=== PATIENT | female | born 1975 | race Caucasian/White ===

== ENCOUNTER → 2016-10-13 | Outpatient (CLI) | payer OTHER ==
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
== END | disposition home or self-care (01) ==
LOC: RADMRIMAIN 18:38
PROVIDERS: ATTEND Family Medicine
DX: M50.221 Other cervical disc displacement at C4-C5 level (principal)
CPT/HCPCS: 72141

== ENCOUNTER → 2016-11-13 | Outpatient (CLI) | payer OTHER ==
--- NOTE | 2016-11-13 12:59 | MR ---
EXAMINATION TYPE: MR lumbar spine wo/w con DATE OF EXAM: 11/13/2016 11:38 AM COMPARISON: 10/08/2012 HISTORY: back pain, hx of breast ca CONTRAST: 20 mL intravenous MultiHance. TECHNIQUE: Multiplanar, multisequence images of the lumbar spine were acquired. FINDINGS: L5-S1: Left paracentral disc bulging is present with moderate anterior thecal sac compression. This h as contact with left S1 nerve root. Some posterior displacement may be present. Correlate with left r adicular symptoms. Neural foramen are patent.. L4-L5: Some facet hypertrophy is present. Ligamentum flavum laxity is present with posterior lateral thecal sac compression. No lateral canal stenosis present. Minimal disc bulge is present with anterio r thecal sac contact. No AP spinal canal stenosis is present. Neural foramen are patent. L3-L4: No significant disc bulge or disc herniation. No spinal canal stenosis. No foraminal stenosi s. Neural foramen are patent.. L2-L3: No significant disc bulge or disc herniation. No spinal canal stenosis. No foraminal stenosi s. Neural foramen are patent.. L1-L2: No significant disc bulge or disc herniation. No spinal canal stenosis. No foraminal stenosi s. Neural foramen are patent.. T12-L1: No significant disc bulge or disc herniation. No spinal canal stenosis. No foraminal stenos is. Neural foramen are patent.. IMPRESSION: 1. Left paracentral disc bulge L5-S1 likely has left S1 nerve root contact and displacement. Correlat e with left S1 radicular symptoms. 2. Facet hypertrophy L4-5 with degenerative disc changes present at this level. 3. Examination appears similar to the comparison of 10/08/2012
== END | disposition home or self-care (01) ==
LOC: RADMRIMAIN 10:47
PROVIDERS: ATTEND Physical Medicine & Rehabilitation
DX: M51.27 Other intervertebral disc displacement, lumbosacral region (principal); M53.86 Other specified dorsopathies, lumbar region; M51.36 Other intervertebral disc degeneration, lumbar region
CPT/HCPCS: 72158; A9577

== ENCOUNTER → 2016-11-14 | Outpatient (CLI) | payer OTHER ==
--- NOTE | 2016-11-14 14:55 | XR ---
Right shoulder HISTORY: Pain The patient's arthrogram was aborted at this time and rescheduled due to patient's contrast allergy. Patient will be premedicated for contrast administration. 3 views of the right shoulder. Bone mineralization is reduced. 4 images. No fracture or dislocation. Right lung apex as visualized is normal. There is arthropathy of the acro mioclavicular joint. IMPRESSION: Aborted arthrogram. Osteopenia, acromioclavicular joint arthropathy
== END | disposition home or self-care (01) ==
LOC: RADFLMAIN 13:11
PROVIDERS: ATTEND Physical Medicine & Rehabilitation
DX: M85.811 Other specified disorders of bone density and structure, right shoulder (principal); M12.811 Other specific arthropathies, not elsewhere classified, right shoulder

== ENCOUNTER → 2016-11-28 | Outpatient (CLI) | payer OTHER ==
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
--- NOTE | 2016-11-28 15:57 | FL ---
Fluoroscopic guided arthrogram right shoulder, aborted HISTORY: Shoulder pain No comparisons Barrier technique was utilized. The skin overlying a suitable path to the inferior aspect of the fei ohumeral joint was localized with fluoroscopy and the overlying skin prepped and draped. Lidocaine ed for local anesthesia. Following attempted placement of the 22-gauge needle within the joint space, patient experienced some referred pain to the upper shoulder. Reattempt at slightly different angle with a 22-gauge needle yielded pain that was intolerable to the patient. Patient requested terminatio n of the procedure. Hemostasis was achieved. Needle removed. No immediate complication. Patient's sym ptoms subsided spontaneously. IMPRESSION: The procedure was terminated due to patient pain.
== END ==
LOC: RADFLMAIN 12:59
PROVIDERS: ATTEND Physical Medicine & Rehabilitation
DX: S46.011A Strain of muscle(s) and tendon(s) of the rotator cuff of right shoulder, initial encounter (principal); M75.41 Impingement syndrome of right shoulder

== ENCOUNTER → 2017-02-19 | Outpatient (CLI) | payer OTHER ==
--- NOTE | 2017-02-26 15:56 | MR ---
MR brain without contrast HISTORY: Headaches, postconcussion syndrome Multiplanar multisequence imaging obtained through the brain and correlated to CT brain 02/07/2016 There is no restricted diffusion. There is no hemorrhage or hydrocephalus. There are normal vascular flow voids. The orbits show symmetric appearance. Paranasal sinuses are well aerated, ethmoid air jose ls are normal as seen. Brain signal is remarkable for some scattered hyperintensities on inversion re covery and T2-weighted sequences deep white matter, approximately 5-10 lesions, the largest measures only 4 mm. Corpus callosum, pituitary, cervical medullary junction, cerebellopontine angles are ky l. Postcontrast images was performed, there was a lack of intravenous access IMPRESSION: Scattered white matter hyperintensities are indeterminate and could be seen due to migrai ne headaches, hypertension, vasculitis, multiple sclerosis felt to be less likely.
== END | disposition home or self-care (01) ==
LOC: RADMRIMAIN 11:46
PROVIDERS: ATTEND Physical Medicine & Rehabilitation
DX: R90.82 White matter disease, unspecified (principal); F07.81 Postconcussional syndrome
CPT/HCPCS: 70551

== ENCOUNTER → 2017-03-19 | Outpatient (CLI) | payer OTHER ==
--- NOTE | 2017-03-20 08:59 | MM ---
Reason for exam: additional evaluation requested from prior study. Last mammogram was performed 1 year ago. History: Patient is postmenopausal and has history of breast cancer at age 38. Family history of premenopausal breast cancer in maternal aunt at age 32. Malignant US breast localization LT, January 11, 2014. Malignant US LT VAD breast biopsy of the left breast, November 16, 2013. Chemotherapy, 2013. Radiation therapy of the left breast, 2013. Excisional biopsy of the left breast, 2006. Took hormonal contraceptives for 13 years beginning at age 23. Took tamoxifen for 8 months. Physical Findings: Nurse did not find any significant physical abnormalities on exam. MG 3D Diag Mammo W/Cad SUMMER Bilateral CC and MLO view(s) were taken. Prior study comparison: March 05, 2016, bilateral MG 3d diag mammo w/cad SUMMER. February 09, 2015, bilateral MG diagnostic mammo w CAD SUMMER. The breast tissue is heterogeneously dense. This may lower the sensitivity of mammography. No suspicious calcifications or masses are seen. Stable post lumpectomy changes in the left breast. No significant new findings when compared with previous films. These results were verbally communicated with the patient and result sheet given to the patient on 03/19/17. ASSESSMENT: Benign, BI-RAD 2 RECOMMENDATION: Follow-up diagnostic mammogram of both breasts in 1 year.
== END | disposition home or self-care (01) ==
LOC: RADMAMWWP 15:19
PROVIDERS: ATTEND Internal Medicine Hematology & Oncology
DX: R92.8 Other abnormal and inconclusive findings on diagnostic imaging of breast (principal)
CPT/HCPCS: G0204; G0279

== ENCOUNTER 2017-11-18 10:32 | Emergency (ER) | payer OTHER ==
[2017-11-18] MEDS ORDERED: ONDANSETRON ODT 4 MG TAB PO STA (10:41)
[2017-11-18] MEDS ORDERED: RX INFO: IV CONTRAST WAS GIVEN 1 EACH MISC MISCELLANE PRN (10:47)
[2017-11-18] MEDS ORDERED: methylPREDNISolone SOD SUCCI 125 MG/2 ML VIAL IV STA (10:48)
[2017-11-18] MEDS ORDERED: FAMOTIDINE 20 MG/2 ML VIAL IV STA (10:48)
[2017-11-18] MEDS ORDERED: diphenhydrAMINE 50 MG/ML 1 ML VIAL IVP STA (10:48)
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
[2017-11-18 11:30] LABS: Basophils % (A) 1 %; Eosinophils # (A) 0.1 k/uL (0-0.7); Eosinophils % (A) 2 %; HCT 42.5 % (34.0-46.0); HGB 14.8 gm/dL (11.4-16.0); Lymphocytes % (A) 35 %; MCH 29.6 pg (25.0-35.0); MCHC 34.8 g/dL (31.0-37.0); Mean Platelet Volume 6.7; Monocytes # (A) 0.4 k/uL (0-1.0); Monocytes % (A) 7 %; Neutrophils % (A) 54 %; Platelet Count 324 k/uL (150-450); RDW 12.7 % (11.5-15.5); WBC 5.6 k/uL (3.8-10.6)
[2017-11-18 11:38] LABS: ALT 36 U/L (9-52); AST 33 U/L (14-36); Albumin 4.4 g/dL (3.5-5.0); Alcohol <10 mg/dL; Alkaline Phosphatase 146 U/L (38-126); Anion Gap 12 mmol/L; Blood Urea Nitrogen 14 mg/dL (7-17); Calcium 9.8 mg/dL (8.4-10.2); Carbon Dioxide 25 mmol/L (22-30); Chloride 103 mmol/L (98-107); Glucose 87 mg/dL (74-99); Potassium 4.4 mmol/L (3.5-5.1); Sodium 140 mmol/L (137-145); Total Bilirubin 0.4 mg/dL (0.2-1.3); Total Protein 7.7 g/dL (6.3-8.2)
[2017-11-18 11:40] LABS: Partial Thromboplastin Time 23.9 sec (22.0-30.0); Prothrombin Time 9.8 sec (9.0-12.0)
[2017-11-18 11:53] LABS: Creatine Kinase 55 U/L (30-135)
[2017-11-18 12:05] LABS: Creatine Kinase MB 0.5 ng/mL (0.0-2.4); Troponin I <0.012 ng/mL (0.000-0.034)
[2017-11-18 12:27] VITALS: RESP 18
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
[2017-11-18 13:43] LABS: Amphetamine Screen,Urine Not Detected (NotDetected); Barbiturate Screen,Urine Not Detected (NotDetected); Benzodiazepines Screen,Urine Not Detected (NotDetected); Cocaine Screen,Urine Not Detected (NotDetected); Methadone Screen, Urine Not Detected (NotDetected); Opiate Screen,Urine Not Detected (NotDetected); Oxycodone Screen, Urine Detected (NotDetected); Phencyclidine Screen,Urine Not Detected (NotDetected); Tricyclic Antidepressant,Urine Not Detected (NotDetected); Urn Cannabinoid Scrn Not Detected (NotDetected)
[2017-11-18 13:49] VITALS: BP 97/66; PULSE 93; TEMP 97.9
[2017-11-18 14:27] LABS: Appearance,Urine Cloudy (Clear); Bacteria,Urine Few /hpf; Bilirubin,Urine Negative (Negative); Blood,Urine Trace (Negative); Color,Urine Colorless; Glucose,Urine (UA) Negative (Negative); Ketones,Urine Negative (Negative); Leukocyte Esterase,Urine Large (Negative); Mucus,Urine Rare /hpf; Nitrite,Urine Negative (Negative); Protein,Urine Negative (Negative); RBC,Urine 5 /hpf (0-5); Specific Gravity,Urine 1.024 (1.001-1.035); Squamous Epithelial Cell,Urine 20 /hpf (0-4); Urobilinogen,Urine <2.0 mg/dL (<2.0); WBC,Urine 80 /hpf (0-5)
== END 2017-11-18 13:49 | disposition home or self-care (01) ==
LOC: EC 10:32
DX: M79.89 Other specified soft tissue disorders (principal); M89.8X8 Other specified disorders of bone, other site; K76.89 Other specified diseases of liver; K21.9 Gastro-esophageal reflux disease without esophagitis; F32.9 Major depressive disorder, single episode, unspecified; F41.9 Anxiety disorder, unspecified; Z79.891 Long term (current) use of opiate analgesic; Z79.899 Other long term (current) drug therapy; Z91.013 Allergy to seafood; Z91.041 Radiographic dye allergy status; Z85.3 Personal history of malignant neoplasm of breast; Z98.890 Other specified postprocedural states; R11.0 Nausea; V49.50XA Passenger injured in collision with unspecified motor vehicles in traffic accident, initial encounter; Y92.410 Unspecified street and highway as the place of occurrence of the external cause
CPT/HCPCS: 36415; 93005; 86900; 86901; 80053; 82550; 82553; 84484; 85025; 85610; 85730; 86850; 81001; 80306; 80320; 73030; 72125; 70450; 71260; 74177; 99285; 96374; 96375 ×2; J1200; J2930; Q9967

== ENCOUNTER → 2017-11-28 | Outpatient (CLI) | payer OTHER ==
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
== END | disposition home or self-care (01) ==
LOC: RADPETMAIN 12:23
PROVIDERS: ATTEND Internal Medicine Hematology & Oncology
DX: C50.412 Malignant neoplasm of upper-outer quadrant of left female breast (principal)
CPT/HCPCS: 78815; A9552

== ENCOUNTER → 2018-03-22 | Outpatient (CLI) | payer OTHER ==
--- NOTE | 2018-03-22 11:43 | MM ---
Reason for exam: additional evaluation requested from prior study. Last mammogram was performed 1 year ago. History: Patient is postmenopausal and has history of breast cancer at age 38. Family history of premenopausal breast cancer in maternal aunt at age 32. Malignant US breast localization LT, January 11, 2014. Malignant US LT VAD breast biopsy of the left breast, November 16, 2013. Chemotherapy, 2013. Radiation therapy of the left breast, 2013. Excisional biopsy of the left breast, 2006. Took hormonal contraceptives for 13 years beginning at age 23. Took tamoxifen for 8 months. Physical Findings: Nurse did not find any significant physical abnormalities on exam. MG 3D Diag Mammo W/Cad SUMMER Bilateral CC and MLO view(s) were taken. Prior study comparison: March 19, 2017, bilateral MG 3d diag mammo w/cad SUMMER. March 05, 2016, bilateral MG 3d diag mammo w/cad SUMMER. The breast tissue is heterogeneously dense. This may lower the sensitivity of mammography. Post surgical and post therapy changes left breast. No significant new findings when compared with previous films. These results were verbally communicated with the patient and result sheet given to the patient on 03/22/18. ASSESSMENT: Benign, BI-RAD 2 RECOMMENDATION: Follow-up diagnostic mammogram of both breasts in 1 year.
== END | disposition home or self-care (01) ==
LOC: RADMAMWWP 10:41
PROVIDERS: ATTEND Internal Medicine Hematology & Oncology
DX: Z85.3 Personal history of malignant neoplasm of breast (principal)
CPT/HCPCS: 77066; G0279; 77062

== ENCOUNTER → 2018-03-27 | Outpatient (CLI) | payer OTHER ==
--- NOTE | 2018-03-29 07:52 | PE ---
EXAMINATION TYPE: PET CT fusion skull to thigh DATE OF EXAM: 03/27/2018 COMPARISON: 11/28/2018 PET/CT and CT chest, abdomen, and pelvis dated 11/18/2017. HISTORY: Breast cancer. Follow-up exam. Surveillance. Assess response to treatment. History of left b reast cancer with surgical resection in November 2013. Last radiation therapy in 2014 and chemotherapy i n 2013. TECHNIQUE: Following the intravenous administration of 14.73 mCi of F-18 FDG, whole body images are performed from the skull base to the midthigh. Images are reviewed on the computer in the coronal, a xial, and sagittal planes. Reconstructed rotating images are created on independent workstation and reviewed on the computer. A localization and attenuation correction CT is performed in conjunction with the PET scan. SCAN: Follow-up, second. FINDINGS: Mediastinal background: 1.66 Abdominal background: 3.11 SKULL BASE AND NECK: No suspicious radiotracer uptake. CHEST, MEDIASTINUM, AND HILAR REGION: No focal uptake in the postsurgical left lumpectomy bed or axil la. ABDOMEN AND PELVIS: No focal hepatic uptake is seen. The segment 4 hepatic lesion seen on the exam of 11/18/2017 is again suspected to represent focal fat with no hypermetabolic activity. Although few left superficial inguinal lymph nodes remain prominent sizes are unchanged from the prio r and demonstrate no hypermetabolic activity with a maximum SUV of 1.08. The previously seen focal fat stranding within the left hip is redemonstrated, again possibly sequela prior trauma and is not hypermetabolic with a maximum SUV of 1.33 (previously 2.9). OSSEOUS STRUCTURES: The sclerotic sternal lesion shows no hypermetabolic uptake with a maximum SUV of 1.02 (previous upta ke of 2.0). The previously seen uptake along the left mid clavicle is no longer appreciated and was likely degene rative. The previously seen uptake along the left anterior seventh rib without CT correlate is no longer appr eciated. The previously seen mildly hypermetabolic uptake throughout the bone marrow of the spine with a maxim um SUV of 3.8 on the prior exam is no longer appreciated as the spine has a maximum SUV of 2.69, belo w mediastinal background. OTHER CT: Visualized paranasal sinuses and mastoid air cells are well aerated. No new adenopathy in t he head or neck. Left paracentral sternal body echogenic focus is unchanged measuring 1.3 cm. No new pulmonary nodules evident. Minimal bibasilar subsegmental atelectasis is seen. No mediastinal adenopa thy is appreciated. The unenhanced abdominal viscera are grossly unremarkable other than 3 nonobstruc ting 1 to 2 mm left renal calculi are seen on the prior. Additionally there is a punctate 1 to 2 mm r ight upper port nonobstructing renal calculus. Bowel is nondilated. Cystic/follicular changes are see n in the ovaries. Similar-appearing prominent but nonenlarged superficial inguinal lymph nodes again are appreciated on the left. Mild degenerative changes of the spine and sacroiliac joints as well as the femoral acetabular joints are present. IMPRESSION: 1. No current evidence of active metastatic disease. There is no hypermetabolic activity within the c hest, abdomen, or pelvis. 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 No hypermetabolic activity is n ow appreciated within the anterior seventh left rib is seen on the prior. 2.4 no hypermetabolic activity within the liver to suggest metastatic disease. The previously seen hy poattenuated lesion in segment IVb likely represents focal fatty infiltration and is stable from the prior.
== END | disposition home or self-care (01) ==
LOC: RADPETMAIN 09:50
PROVIDERS: ATTEND Internal Medicine Hematology & Oncology
DX: C79.51 Secondary malignant neoplasm of bone (principal); C50.412 Malignant neoplasm of upper-outer quadrant of left female breast; K76.0 Fatty (change of) liver, not elsewhere classified
CPT/HCPCS: 78815; A9552

== ENCOUNTER → 2018-04-02 | Outpatient (CLI) | payer OTHER | END | disposition home or self-care (01) | LOC: RADUSWWP 12:10 | PROVIDERS: ATTEND Internal Medicine | DX: Z53.9 Procedure and treatment not carried out, unspecified reason (principal) ==

== ENCOUNTER → 2018-04-05 | Outpatient (CLI) | payer OTHER ==
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
== END | disposition home or self-care (01) ==
LOC: RADUSWWP 08:48
PROVIDERS: ATTEND Internal Medicine
DX: R22.42 Localized swelling, mass and lump, left lower limb (principal)

== ENCOUNTER → 2019-03-23 | Outpatient (CLI) | payer MEDICARE, OTHER ==
--- NOTE | 2019-03-23 12:03 | MM ---
Reason for exam: additional evaluation requested from prior study. Last mammogram was performed 1 year ago. History: Patient is postmenopausal and has history of breast cancer at age 38. Family history of premenopausal breast cancer in maternal aunt at age 32. Malignant US breast localization LT, January 11, 2014. Malignant US LT VAD breast biopsy of the left breast, November 16, 2013. Chemotherapy, 2013. Radiation therapy of the left breast, 2013. Excisional biopsy of the left breast, 2006. Took hormonal contraceptives for 13 years beginning at age 23. Took tamoxifen for 8 months. Physical Findings: Nurse did not find any significant physical abnormalities on exam. MG 3D Diag Mammo W/Cad SUMMER Bilateral CC and MLO view(s) were taken. XCCL view(s) were taken of the left breast. Prior study comparison: March 22, 2018, bilateral MG 3d diag mammo w/cad SUMMER. March 19, 2017, bilateral MG 3d diag mammo w/cad SUMMER. The breast tissue is heterogeneously dense. This may lower the sensitivity of mammography. Finding: There are stable clips, architectural distortion in the upper outer quadrant, posterior position of the left breast consistent with known excisional biopsy. This finding appears new when compared with previous films. These results were verbally communicated with the patient and result sheet given to the patient on 03/23/19. ASSESSMENT: Benign, BI-RAD 2 RECOMMENDATION: Follow-up diagnostic mammogram of both breasts in 1 year.
== END | disposition home or self-care (01) ==
LOC: RADMAMWWP 10:50
PROVIDERS: ATTEND Internal Medicine Hematology & Oncology
DX: Z08 Encounter for follow-up examination after completed treatment for malignant neoplasm (principal); Z85.3 Personal history of malignant neoplasm of breast
CPT/HCPCS: 77066; G0279; 77062

== ENCOUNTER 2019-06-11 13:24 | Emergency (ER) | payer MEDICARE, OTHER ==
[2019-06-11 13:31] VITALS: TEMP 98.5
[2019-06-11] MEDS ORDERED: IPRATROPIUM-ALBUTEROL 3 ML NEB INHALATION STA (13:41)
[2019-06-11] MEDS ORDERED: SODIUM CHLORIDE 0.9% 1,000 ML IV STA ×2 (13:41)
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
[2019-06-11 14:51] VITALS: RESP 18
[2019-06-11 15:01] LABS: Basophils % (A) 0 %; Eosinophils % (A) 0 %; HCT 41.1 % (34.0-46.0); HGB 12.9 gm/dL (11.4-16.0); Hypochromasia Slight; Lymphocytes # (A) 1.4 k/uL (1.0-4.8); Lymphocytes % (A) 12 %; MCH 28.5 pg (25.0-35.0); MCHC 31.5 g/dL (31.0-37.0); MCV 90.3 fL (80.0-100.0); Mean Platelet Volume 6.3; Monocytes # (A) 0.1 k/uL (0-1.0); Monocytes % (A) 1 %; Neutrophils # (A) 10.4 k/uL (1.3-7.7); Neutrophils % (A) 86 %; Platelet Count 534 k/uL (150-450); RBC 4.55 m/uL (3.80-5.40); RDW 12.8 % (11.5-15.5); WBC 12.1 k/uL (3.8-10.6)
[2019-06-11 15:11] LABS: ALT 18 U/L (9-52); AST 20 U/L (14-36); African American GFR (CKD) >90 (>60 ml/min/1.73 sqM); Albumin 4.5 g/dL (3.5-5.0); Alkaline Phosphatase 118 U/L (38-126); Anion Gap 14 mmol/L; Blood Urea Nitrogen 6 mg/dL (7-17); Calcium 9.7 mg/dL (8.4-10.2); Carbon Dioxide 24 mmol/L (22-30); Chloride 104 mmol/L (98-107); Glucose 149 mg/dL (74-99); INR 0.9 (<1.2); Magnesium 2.3 mg/dL (1.6-2.3); Partial Thromboplastin Time 24.5 sec (22.0-30.0); Potassium 3.7 mmol/L (3.5-5.1); Sodium 142 mmol/L (137-145); Total Bilirubin 0.3 mg/dL (0.2-1.3); Total Protein 8.1 g/dL (6.3-8.2)
--- NOTE | 2019-06-11 15:46 | XR ---
EXAMINATION TYPE: XR chest 2V DATE OF EXAM ORDERED: 06/11/2019 HISTORY: difficulty breathing. REFERENCE: Previous study dated 05/23/2014. FINDINGS: There are surgical clips projecting over the left breast. The lungs are clear. Pleural spaces are clear. Heart size is normal. IMPRESSION: NORMAL CHEST.
[2019-06-11 16:56] VITALS: BP 100/72; PULSE 88
== END 2019-06-11 16:56 | disposition home or self-care (01) ==
LOC: EC 13:24
DX: J40 Bronchitis, not specified as acute or chronic (principal); D72.829 Elevated white blood cell count, unspecified; K21.9 Gastro-esophageal reflux disease without esophagitis; F32.9 Major depressive disorder, single episode, unspecified; F41.9 Anxiety disorder, unspecified; Z91.013 Allergy to seafood; Z91.041 Radiographic dye allergy status; Z91.048 Other nonmedicinal substance allergy status; Z79.52 Long term (current) use of systemic steroids; Z79.891 Long term (current) use of opiate analgesic; Z79.899 Other long term (current) drug therapy; Z85.3 Personal history of malignant neoplasm of breast; Z86.69 Personal history of other diseases of the nervous system and sense organs; Z87.01 Personal history of pneumonia (recurrent); Z92.21 Personal history of antineoplastic chemotherapy; Z92.3 Personal history of irradiation; Z90.89 Acquired absence of other organs; Z98.890 Other specified postprocedural states; Z82.5 Family history of asthma and other chronic lower respiratory diseases
CPT/HCPCS: 36415; 71046; 80053; 83735; 84484; 85025; 85610; 85730; 87040; 93005; 94640; 96360; 99285

== ENCOUNTER → 2021-04-22 | Outpatient (CLI) | payer MEDICARE, OTHER ==
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
== END | disposition home or self-care (01) ==
LOC: RADMRIMAIN 15:00
PROVIDERS: ATTEND Psychiatry & Neurology Neurology
DX: M51.24 Other intervertebral disc displacement, thoracic region (principal); M54.2 Cervicalgia
CPT/HCPCS: 72141

== ENCOUNTER → 2021-04-24 | Outpatient (CLI) | payer MEDICARE, OTHER ==
--- NOTE | 2021-04-25 10:06 | MM ---
Reason for exam: additional evaluation requested from prior study. Last mammogram was performed 1 year and 1 month ago. History: Patient is postmenopausal and has history of breast cancer at age 38. Family history of premenopausal breast cancer in maternal aunt at age 32. Malignant US breast localization LT, January 11, 2014. Malignant US LT VAD breast biopsy of the left breast, November 16, 2013. Chemotherapy, 2013. Radiation therapy of the left breast, 2013. Excisional biopsy of the left breast, 2006. Took hormonal contraceptives for 13 years beginning at age 23. Took tamoxifen for 8 months. Took antineoplastic for 1 year 4 months beginning at age 38. Physical Findings: Nurse did not find any significant physical abnormalities on exam. MG 3D Diag Mammo W/Cad SUMMER Bilateral CC and MLO view(s) were taken. Prior study comparison: March 26, 2020, bilateral MG 3d diag mammo w/cad SUMMER. March 23, 2019, bilateral MG 3d diag mammo w/cad SUMMER. The breast tissue is heterogeneously dense. This may lower the sensitivity of mammography. No suspicious calcifications or masses. Stable lumpectomy changes left breast. These results were verbally communicated with the patient and result sheet given to the patient on 04/24/21. ASSESSMENT: Benign, BI-RAD 2 RECOMMENDATION: Follow-up diagnostic mammogram of both breasts in 1 year.
== END | disposition home or self-care (01) ==
LOC: RADMAMWWP 14:37
PROVIDERS: ATTEND Internal Medicine Hematology & Oncology
DX: R92.8 Other abnormal and inconclusive findings on diagnostic imaging of breast (principal); Z85.3 Personal history of malignant neoplasm of breast
CPT/HCPCS: 77066; G0279; 77062

== ENCOUNTER → 2021-11-22 | Outpatient (CLI) | payer MEDICARE, OTHER ==
--- NOTE | 2021-11-22 15:03 | MM ---
Reason for exam: clinical finding. Last mammogram was performed 7 months ago. History: Patient is postmenopausal and has history of breast cancer at age 38. Family history of premenopausal breast cancer in maternal aunt at age 32. Malignant US breast localization LT, January 11, 2014. Malignant US LT VAD breast biopsy of the left breast, November 16, 2013. Chemotherapy, 2013. Radiation therapy of the left breast, 2013. Excisional biopsy of the left breast, 2006. Took hormonal contraceptives for 13 years beginning at age 23. Took tamoxifen for 8 months. Took antineoplastic for 1 year 4 months beginning at age 38. Physical Findings: A clinical breast exam by your physician is recommended on an annual basis and results should be correlated with mammographic findings. MG 3D Diag Mammo W/Cad LT CC and MLO view(s) were taken of the left breast. Prior study comparison: April 24, 2021, bilateral MG 3d diag mammo w/cad [facility]. March 26, 2020, bilateral MG 3d diag mammo w/cad [facility]. The breast tissue is heterogeneously dense. This may lower the sensitivity of mammography. Finding: Architectural distortion in the upper outer quadrant, posterior position of the left breast. New 12mm oval density posterior far outer quadrant at palpable per prior excision. ASSESSMENT: Incomplete: need additional imaging evaluation, BI-RAD 0 RECOMMENDATION: Ultrasound of the left breast.
--- NOTE | 2021-11-22 15:05 | USB ---
Reason for exam: additional evaluation requested from abnormal screening. History: Patient is postmenopausal and has history of breast cancer at age 38. Family history of premenopausal breast cancer in maternal aunt at age 32. Malignant US breast localization LT, January 11, 2014. Malignant US LT VAD breast biopsy of the left breast, November 16, 2013. Chemotherapy, 2013. Radiation therapy of the left breast, 2013. Excisional biopsy of the left breast, 2006. Took hormonal contraceptives for 13 years beginning at age 23. Took tamoxifen for 8 months. Took antineoplastic for 1 year 4 months beginning at age 38. Physical Findings: A clinical breast exam by your physician is recommended on an annual basis and results should be correlated with mammographic findings. US Breast Limited LT Technologist: Moriah Kaur Left limited breast ultrasound including focal area of concern, retroareolar and axilla demonstrates a 1.6 x 1.1 x 0.7cm oval, lobular, solid, hypoechoic, vascular lesion at 3 o'clock 9cm from nipple, abuts dermal layer. ASSESSMENT: Suspicious, BI-RAD 4 RECOMMENDATION: Ultrasound core biopsy of the left breast. Called Dr. Saeed's office with mammographic findings and has scheduled an appointment for the patient for 01/16/22 at 10:[address] Carlson. Biopsy scheduled for 12/05/21 at 1:00. PRELIMINARY REPORT CALLED AND FAXED TO DR. CARLSON ON 11/22/21.
== END | disposition home or self-care (01) ==
LOC: RADMAMWWP 07:46
PROVIDERS: ATTEND Internal Medicine Hematology & Oncology
DX: R92.8 Other abnormal and inconclusive findings on diagnostic imaging of breast (principal); Z85.3 Personal history of malignant neoplasm of breast; Z78.0 Asymptomatic menopausal state; Z80.3 Family history of malignant neoplasm of breast
CPT/HCPCS: 77065; 76642; G0279; 77061

== ENCOUNTER → 2021-12-20 | Outpatient (CLI) | payer MEDICARE, OTHER ==
--- NOTE | 2021-12-20 16:21 | NM ---
EXAMINATION TYPE: NM bone scan whole body DATE OF EXAM: 12/20/2021 COMPARISON: NONE HISTORY: Breast cancer Delayed whole-body scanning was performed following the injection of 23 mCi Tc 99m MDP. Images were acquired 5 hours post injection. FINDINGS: There is focal increased radiotracer accumulation within the mid sternum is slightly greater to the r ight compared to the left. Findings are suspicious for metastatic disease. There is a small area of focal uptake within the vertex of the calvarium which can be related to meta static lesion Remainder of the axial and appendicular skeleton appear without suspicious uptake. Some degenerative change may be at the elbows and possibly the knees. IMPRESSION: 1. Uptake within the mid sternum and at the vertex of the calvarium suspicious for metastatic disease .
== END | disposition home or self-care (01) ==
LOC: RADCTMAIN 07:51
PROVIDERS: ATTEND Internal Medicine Hematology & Oncology
DX: C50.412 Malignant neoplasm of upper-outer quadrant of left female breast (principal)
CPT/HCPCS: 78306; A9503

== ENCOUNTER → 2021-12-23 | Outpatient (CLI) | payer MEDICARE, OTHER ==
--- NOTE | 2021-12-23 13:47 | CT ---
EXAMINATION TYPE: CT ChestAbdPelvis w con DATE OF EXAM: 12/23/2021 COMPARISON: 11/18/2017 HISTORY: Follow up breast cancer CT DLP: 1427 mGycm CONTRAST: CT scan of the chest, abdomen and pelvis is performed with Oral Contrast and with IV Contrast, patien t injected with 100 mL of Isovue 300. CT Chest: LUNGS: The lungs are clear and free of infiltrate or atelectasis. No pulmonary nodule or mass is det ected. No pleural effusion or CT evidence of interstitial lung disease. MEDIASTINUM: Thoracic aorta is of normal caliber. The heart is not enlarged. No evidence for media stinal mass or adenopathy. HILAR STRUCTURES: No evidence for mass. No hilar adenopathy is appreciated. OTHER: No significant abnormality. CONTRAST CT ABDOMEN AND PELVIS FINDINGS: LIVER/GB: No calcified gallstones. Hepatic lesions redemonstrated with hypoattenuating lesion withi n the junction of the right and left hepatic lobes which measures 1.7 cm versus 1.5 cm previously. Ad ditional area of decreased attenuation adjacent to the falciform ligament measuring 1 cm could reflec t additional lesion versus focal fat also unchanged from prior study. No additional lesions identifie d with certainty at this time. Biliary tree is of normal caliber. PANCREAS: No inflammation. No distinct mass. SPLEEN: No splenic enlargement. No lesion seen. ADRENALS: No nodule. No thickening. KIDNEYS/BLADDER: No hydronephrosis. Nonobstructing nephrolithiasis seen. No distinct solid renal mas s. BOWEL: Normal appendix. Normal bowel caliber. No inflammation. GENITAL ORGANS: No gross abnormality. LYMPH NODES: No greater than 1cm abdominal or pelvic lymph nodes are appreciated. AORTA: No significant abnormality. OSSEOUS STRUCTURES: Sclerosis of the sternum may reflect blastic metastatic disease. OTHER: No significant additional abnormality is seen. IMPRESSION: 1. Suspect sternal blastic lesion. 2. No change in hepatic lesions. 3. Nonobstructing bilateral nephrolithiasis.
== END | disposition home or self-care (01) ==
LOC: RADCTMAIN 07:30
PROVIDERS: ATTEND Internal Medicine Hematology & Oncology
DX: N20.0 Calculus of kidney (principal); C50.412 Malignant neoplasm of upper-outer quadrant of left female breast
CPT/HCPCS: 71260; 74177; Q9967

== ENCOUNTER → 2021-12-28 | Outpatient (CLI) | payer MEDICARE, OTHER ==
--- NOTE | 2021-12-31 06:26 | PE ---
EXAMINATION TYPE: PET CT fusion skull to thigh DATE OF EXAM: 12/28/2021 COMPARISON: Most recent CT December 23, 2021. Most recent PET/CT March 27, 2018 and older studies. HISTORY: Left-sided breast cancer with surgery 2013 completed treatment 2014. Recently diagnosed wit h recurrent left-sided breast cancer on biopsy December 05, 2021 invasive ductal carcinoma. TECHNIQUE: Following the intravenous administration of 10.8 mCi of F-18 FDG, whole body images are p erformed from the skull base to the midthigh. Images are reviewed on the computer in the coronal, ax ial, and sagittal planes. Reconstructed rotating images are created on independent workstation and r eviewed on the computer. A localization and attenuation correction CT is performed in conjunction w ith the PET scan. Blood glucose level was 77. SCAN: Subsequent Scan FINDINGS: SKULL BASE AND NECK: No areas of abnormal hypermetabolic uptake. CHEST, MEDIASTINUM, AND HILAR REGION: Surgical clips in the left breast are redemonstrated extending laterally. Corresponding to the most recent imaging there is 1.2 cm lesion abutting the dermal surfac e axial image 91 with mild hypermetabolic uptake, max SUV is less than 2.5. Remainder of bilateral br easts and axillary regions show no abnormal hypermetabolic uptake. No suspicious hypermetabolic uptak e in the remainder of the thorax. ABDOMEN AND PELVIS: Normal excretion is present. No areas of abnormal hypermetabolic uptake. OSSEOUS STRUCTURES: Increasing sclerotic lesion involving the mid to lower sternum shows no definitiv e abnormal hypermetabolic uptake. No areas of abnormal hypermetabolic uptake noted. OTHER CT: Scattered small nonobstructing renal calculi are redemonstrated bilaterally. Residual contr ast from recent CT is seen in the distal colon. IMPRESSION: No suspicious hypermetabolic uptake in the sternal sclerotic lesion to suggest osseous me tastatic disease. Consider other etiology. Minimal hypermetabolic uptake in the new left breast mass or neoplasm. No abnormal adenopathy or hypermetabolic metastatic disease identified.
== END | disposition home or self-care (01) ==
LOC: RADPETMAIN 10:48
PROVIDERS: ATTEND Internal Medicine Hematology & Oncology
DX: C50.412 Malignant neoplasm of upper-outer quadrant of left female breast (principal)
CPT/HCPCS: 78815; A9552

== ENCOUNTER → 2022-02-17 | Outpatient (CLI) | payer MEDICARE, BC, OTHER ==
--- NOTE | 2022-02-17 15:38 | US ---
EXAMINATION TYPE: US kidneys/renal and bladder DATE OF EXAM: 02/17/2022 COMPARISON: CLINICAL HISTORY: E04.2 Nontoxic multinodular goiter. Right side pain. Hx renal stones and hydroneph rosis. EXAM MEASUREMENTS: Right Kidney: 11.9 x 5.9 x 5.2 cm Left Kidney: 10.9 x 5.3 x 5.6 cm Right Kidney: Moderate hydronephrosis. Multiple stones seen throughout kidney. Largest upper pole = 1.0 cm. Largest mid= 0.5 cm. Largest inferior = 0.6 cm Left Kidney: Multiple stones seen throughout kidney with largest mid = 0.5 cm and largest superior= 0 .6 cm. Possible mild hydronephrosis. Bladder: distended, anechoic Bilateral Jets seen IMPRESSION: 1. Bilateral renal stones. 2. Minimal left hydronephrosis with moderate right hydronephrosis.
== END | disposition home or self-care (01) ==
LOC: RADUSWWP 14:44
PROVIDERS: ATTEND Family Medicine
DX: N20.0 Calculus of kidney (principal); N13.30 Unspecified hydronephrosis
CPT/HCPCS: 76770

== ENCOUNTER → 2022-03-20 | Outpatient (CLI) | payer BC, MEDICARE, OTHER ==
--- NOTE | 2022-03-20 15:42 | CT ---
EXAMINATION TYPE: CT abdomen pelvis wo con CT DLP: 445.80 mGycm, Automated exposure control for dose reduction was used. DATE OF EXAM: 03/20/2022 3:25 PM COMPARISON: PET/CT 12/01/2021, CT 12/23/2021. CLINICAL INDICATION:Female, 46 years old with history of N20.1 Calculus of ureter; hx of kidney stone s TECHNIQUE: Axial CT of the abdomen and pelvis . Sagittal and coronal reformats were created on a [employer] workstation. Contrast used: None Oral contrast used: without Oral Contrast FINDINGS: LOWER CHEST: Partially visualized breast implants. ABDOMEN LIVER: Focal fatty infiltration adjacent to the falciform ligament in segment IVb GALLBLADDER AND BILE DUCTS: Unremarkable. PANCREAS: Unremarkable. SPLEEN: Unremarkable. ADRENAL GLANDS: Unremarkable. KIDNEYS AND URETERS: Bilateral renal calculi within the renal sinuses. Largest on the right measuring up to 8 mm and on the left measuring up to 3 mm. One of the right renal calyces stones seen on prior is no longer visualized. The evaluation the ureters is limited due to paucity of intra-abdominal fat and adjacent structures does not demonstrate evidence for ureteral calculus. Mild asymmetric dilatio n of the right renal pelvis No evidence of left-sided hydronephrosis or obstructive uropathy. PELVIS BLADDER: Unremarkable REPRODUCTIVE: Unremarkable. ABDOMEN & PELVIS STOMACH AND BOWEL: No evidence of bowel obstruction. PERITONEUM: No evidence of pneumoperitoneum or free fluid. VASCULATURE: No evidence of aortic aneurysm. MUSCULOSKELETAL: No acute osseous abnormalities, remote injury to the right pubic symphysis is unchan ged from prior. LYMPH NODES: No gross evidence for lymphadenopathy. SOFT TISSUE/ABDOMINAL WALL: Unremarkable IMPRESSION: 1. No evidence for obstructive uropathy, minimal asymmetric dilation of the right renal sinus and pr oximal ureter is present which could represent recently passed stone given one of the stones seen on prior 12/23/2021 study is no longer visualized in the right renal calyx. 2. Nonobstructing bilateral renal calculi.
== END | disposition home or self-care (01) ==
LOC: RADCTMAIN 14:50
PROVIDERS: ATTEND Urology
DX: N20.0 Calculus of kidney (principal)
CPT/HCPCS: 74176

== ENCOUNTER → 2022-09-18 | Outpatient (CLI) | payer OTHER, MEDICARE ==
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
== END | disposition home or self-care (01) ==
LOC: RADXRMAIN 15:01
PROVIDERS: ATTEND Emergency Medicine
DX: S90.31XA Contusion of right foot, initial encounter (principal)

== ENCOUNTER → 2022-09-19 | Outpatient (CLI) | payer OTHER, MEDICARE ==
[2022-09-19 18:05] LABS: Basophils # (A) 0.03 X 10*3/uL (0.00-0.10); Basophils % (A) 0.7 %; Eosinophils % (A) 2.3 %; HCT 42.9 % (37.2-46.3); HGB 13.4 g/dL (12.0-15.0); Immature Grans, Automated 0.2 %; Lymphocytes # (A) 1.58 X 10*3/uL (0.90-5.00); Lymphocytes % (A) 36.6 %; MCH 29.6 pg (27.0-32.0); MCHC 31.2 g/dL (32.0-37.0); MCV 94.9 fL (80.0-97.0); Mean Platelet Volume 10.6 fL (9.5-12.2); Monocytes # (A) 0.46 X 10*3/uL (0.20-1.00); Monocytes % (A) 10.6 %; NRBC Per 100 WBC 0 /100 WBCS (0.0-0.0); Neutrophils # (A) 2.14 X 10*3/uL (1.80-7.70); Neutrophils % (A) 49.6 %; Platelet Count 240 X 10*3/uL (140-440); RBC 4.52 X 10*6/uL (4.10-5.20); RDW 12.7 % (11.5-14.5); WBC 4.32 X 10*3/uL (4.50-10.00)
[2022-09-19 18:16] LABS: African American GFR (CKD) 120.4 (60.0-200.0); BUN/Creat Ratio 23.57 Ratio (12.00-20.00); Blood Urea Nitrogen 16.5 mg/dL (9.0-27.0); Calcium 9.8 mg/dL (8.7-10.3); Non-African American GFR(CKD) 103.9 (60.0-200.0); Potassium 4.5 mmol/L (3.5-5.5)
[2022-09-19 19:36] LABS: Appearance,Urine Clear (Clear); Bilirubin,Urine Negative (Negative); Blood,Urine Negative (Negative); Color,Urine Yellow (Yellow); Ketones,Urine Negative (Negative); Nitrite,Urine Negative (Negative); PH, Urine 6.5 (5.0-8.0); Specific Gravity,Urine 1.017 (1.001-1.030); Urobilinogen,Urine 0.2 (0.2,1.0)
[2022-09-19 19:48] LABS: Bacteria,Urine None Seen /HPF (None Seen)
== END | disposition home or self-care (01) ==
LOC: LABPAT 11:10
PROVIDERS: ATTEND Urology
DX: Z01.812 Encounter for preprocedural laboratory examination (principal); N20.0 Calculus of kidney
CPT/HCPCS: 80048; 81001; 85025; 87086

== ENCOUNTER 2022-09-23 13:13 | Day surgery (SDC) | payer OTHER, MEDICARE ==
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
[2022-09-23] MEDS ORDERED: DEXAMETHASONE SOD PHOSPHATE 4 MG/ML 1 ML VIAL IV ONE (13:27)
[2022-09-23] MEDS ORDERED: MIDAZOLAM 2 MG/2 ML VIAL IV PRN (13:27)
[2022-09-23] MEDS ORDERED: SCOPOLAMINE 1 MG/72 HR PATCH TRANSDERM ONE (13:27)
[2022-09-23] MEDS ORDERED: ONDANSETRON 4 MG/2 ML VIAL IVP ONE (13:27)
[2022-09-23] MEDS ORDERED: LACTATED RINGERS 1,000 ML IV SCH (13:27)
--- NOTE | 2022-09-23 13:59 | XR ---
EXAMINATION TYPE: XR KUB DATE OF EXAM: 09/23/2022 Comparison: None Clinical History: 47-year-old female R20.02 RIGHT RENAL STONE Findings: Moderate a large stool present. Scattered calcifications left mid abdomen measuring up to 5 mm. Bowel content largely obscures the right renal shadow. Supine imaging limited for assessment of free air. No dilated small bowel. Incidental right L5 hemisacralization. Impression: Bowel content largely obscures the right renal shadow. There is left-sided nephrolithiasis with calcu li measuring up to 5 mm. Moderate to large stool burden and suggesting possible constipation.
[2022-09-23] MEDS ORDERED: PROPOFOL 10 MG/ML 20 ML VIAL IV ONE (15:02)
[2022-09-23] MEDS ORDERED: fentaNYL (PF) 50 MCG/ML 2 ML AMP ONE (15:02)
[2022-09-23] MEDS ORDERED: MIDAZOLAM 2 MG/2 ML VIAL ONE (15:02)
[2022-09-23] MEDS ORDERED: LIDOCAINE 2% INJ 20 MG/ML (2 ML VIAL) ONE (15:02)
[2022-09-23 16:11] VITALS: TEMP 96.8
--- NOTE | 2022-09-23 16:30 | P.OP ---
Date of Procedure: 09/23/22 Preoperative Diagnosis: Right renal stone Postoperative Diagnosis: Same Procedure(s) Performed: Cystoscopy, right ureteroscopy, holmium laser lithotripsy, stone basketing Implants: none Anesthesia: JOBA Surgeon: Gerson Rodríguez Estimated Blood Loss (ml): 5 Pathology: other (right renal stone) Condition: stable Disposition: PACU Indications for Procedure: This is a 47-year-old female with history of bilateral renal stones, she is symptomatic from her right-sided renal stones. Underwent a CT abdomen and pelvis that showed evidence of multiple right-sided renal stones largest measuring 6 mm. The option of ureteroscopy and holmium laser versus ESWL were discussed. Discussed risk of bleeding, infection, injury to the ureter. Discussed also given that stones are nonobstructive potential persistent pain even with stone removal. She understood all the risk and agreed to proceed Operative Findings: Stone within the right mid pole, obstructing the calyx, an additional stone in the lower pole Description of Procedure: Patient brought to the operating room, general anesthesia was induced. She was prepped and draped in sterile fashion and placed in a dorsal lithotomy position. Cystoscopy fitted with a 21-Nigerien sheath was inserted per urethra, cystoscopy was performed showed no abnormality within the bladder. Attention was then carried to the ureter orifice which was intubated with a sensor wire. Next under fluoroscopy 1113 Nigerien access sheath was passed over the wire into the proximal ureter. Next a flexibile ureteroscope was inserted through the access sheath, renoscopy was performed which showed a stone obstructing the middle calyx which was dusted using the holmium laser, an additional stone in the lower pole which was also dusted, sizable fragments were removed using the stone basket. Repeat renoscopy showed no injury to the kidney or any sizable fragments. Pullback ureteroscopy was performed which showed no injury to the ureter or any ureteral fragments, there was no ureteral edema thus a stent was not placed. The bladder was emptied and the end of the case. Patient tolerated procedure well and was taken to recovery in stable condition
[2022-09-23] MEDS: HYDROmorphone 0.5 MG/0.5 ML SYRINGE IVP PRN ×2 (16:37→16:44)
--- NOTE | 2022-09-23 16:44 | FL ---
Intraoperative/procedural fluoroscopic services were provided. Total fluoroscopy time is 12 seconds w ith a total of 1 submitted images to PACS. Please see the operative/procedural note for further detai ls.
[2022-09-23 17:33] VITALS: BP 127/76; PULSE 67; RESP 18
== END 2022-09-23 17:40 | disposition home or self-care (01) ==
LOC: OR 13:13
PROVIDERS: ATTEND Urology
DX: N20.0 Calculus of kidney (principal); M06.9 Rheumatoid arthritis, unspecified; G43.909 Migraine, unspecified, not intractable, without status migrainosus; K91.0 Vomiting following gastrointestinal surgery; Z85.3 Personal history of malignant neoplasm of breast; Z98.82 Breast implant status; Z98.890 Other specified postprocedural states; Z82.5 Family history of asthma and other chronic lower respiratory diseases; Z83.49 Family history of other endocrine, nutritional and metabolic diseases; Z81.8 Family history of other mental and behavioral disorders; Z79.899 Other long term (current) drug therapy; Z91.041 Radiographic dye allergy status; Z91.013 Allergy to seafood
CPT/HCPCS: 82365; 74018; 52353; J1100; J0690; J2405; J1170; 81025

== ENCOUNTER → 2022-10-01 | Outpatient (CLI) | payer OTHER ==
--- NOTE | 2022-10-01 15:32 | XR ---
EXAMINATION TYPE: XR foot complete RT DATE OF EXAM: 10/01/2022 CLINICAL HISTORY: pain TECHNIQUE: Frontal, lateral and oblique images of the right foot are obtained. COMPARISON: None. FINDINGS: There is no acute fracture/dislocation evident. The joint spaces appear within normal rowley its. The overlying soft tissue appears unremarkable. IMPRESSION: There is no acute fracture or dislocation. ICD 10 NO FRACTURE, INITIAL EVALUATION
== END | disposition home or self-care (01) ==
LOC: RADXRMAIN 14:54
PROVIDERS: ATTEND Emergency Medicine
DX: S90.31XD Contusion of right foot, subsequent encounter (principal)

== ENCOUNTER → 2023-03-18 | Outpatient (CLI) | payer MEDICARE, OTHER ==
--- NOTE | 2023-03-19 09:37 | BD ---
EXAMINATION TYPE: Axial Bone Density DATE OF EXAM: 03/18/2023 CLINICAL HISTORY: 47 years old Female. ICD-10 CODE: Z79.890 Height: 64.5 Weight: 186.8 FRAX RISK QUESTIONS: Alcohol (3 or more units per day): no Family History (Parent hip fracture): no Glucocorticoids (More than 3mos): yes History of Fracture in Adulthood: Hand Secondary Osteoporosis: 1. Type 1 Diabetes: no 2. Hyperthyroidism: no 3. Menopause before 45: yes age 38 4. Malnutrition: no 5. Chronic liver disease: no Rheumatoid Arthritis: yes Current Tobacco Use: no RISK FACTORS HISTORY OF: Hip Fracture (Right/Left): no Spine Fracture: no History of Wrist Fracture: no Surgery to Spine/Hip(right/left)/Wrist (right/left): no Family History of Osteoporosis: Mother Active: average Diet low in dairy products/other sources of calcium: yes Postmenopausal woman: yes Take estrogen and/or progesterone medications: Hormone Laila How long: past one year Lost more than 2 inches in height since high school: no Frequent falls: no Poor Health: no Hyperparathyroidism: no Adrenal Insufficiency: no MEDICATIONS: Prednisone or other steroids: yes How Long: Past 6 months Thyroid Medications: no Osteoporosis Medications: no Additional Medications: Xanax, Orencia, Additional History: Breast Ca with chemo and radiation EXAM MEASUREMENTS: Bone mineral densitometry was performed using the Myreks System. Bone mineral density as measured about the Lumbar spine is: ----- L1-L4(G/cm2): 1.125 T Score Values are as follows: ----- L1: -0.6 ----- L2: -0.8 ----- L3: -0.5 ----- L4: -0.1 ----- L1-L4: -0.5 Z Score Values are as follows: ----- L1: -1.1 ----- L2: -1.3 ----- L3: -1.0 ----- L4: -0.1 ----- L1-L4: -1.0 Baseline Study Bone mineral density about the R hip (g/cm2): 0.789 Bone mineral density about the L hip (g/cm2): 0.826 T Score values are as follows: -----R Neck: -1.9 -----L Neck: -1.9 -----R Total: -1.7 -----L Total: -1.5 Z Score values are as follows: -----R Neck: -1.6 -----L Neck: -1.7 -----R Total: -1.9 -----L Total: -1.6 Baseline Study FRAX%s: The graph provided illustrates a 15.9% chance for a major osteoporotic fx and a 3.0% chance f or the hips probability for fx in 10 years time. IMPRESSION: Osteopenia (T Score between -2.5 and -1). There is slightly increased risk of fracture and the patient may be considered for treatment. Re-Screen 2-5 years. NOTE: T-SCORE=SD OF THE YOUNG ADULT MEAN.
== END | disposition home or self-care (01) ==
LOC: RADBDWWP 08:22
PROVIDERS: ATTEND Internal Medicine Hematology & Oncology
DX: M85.89 Other specified disorders of bone density and structure, multiple sites (principal); Z79.890 Hormone replacement therapy
CPT/HCPCS: 77080

== ENCOUNTER 2023-05-09 12:19 | Emergency (ER) | payer MEDICARE, OTHER ==
[2023-05-09 12:30] VITALS: BP 112/75; PULSE 93; RESP 18; TEMP 97.8
[2023-05-09] MEDS ORDERED: ONDANSETRON 4 MG/2 ML VIAL IVP STA (12:41)
[2023-05-09] MEDS ORDERED: KETOROLAC 15 MG/ML 1 ML VIAL IVP STA (12:41)
[2023-05-09] MEDS ORDERED: SODIUM CHLORIDE 0.9% 1,000 ML IV STA (12:41)
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
[2023-05-09 14:22] LABS: Basophils % (A) 0 %; Eosinophils # (A) 0.1 k/uL (0-0.7); Eosinophils % (A) 1 %; HGB 12.3 gm/dL (11.4-16.0); Lymphocytes # (A) 2.6 k/uL (1.0-4.8); Lymphocytes % (A) 40 %; MCH 30.2 pg (25.0-35.0); MCHC 33.2 g/dL (31.0-37.0); MCV 91.1 fL (80.0-100.0); Mean Platelet Volume 7.5; Monocytes # (A) 0.4 k/uL (0-1.0); Monocytes % (A) 7 %; Neutrophils # (A) 3.3 k/uL (1.3-7.7); Neutrophils % (A) 51 %; Platelet Count 280 k/uL (150-450); RBC 4.07 m/uL (3.80-5.40); WBC 6.5 k/uL (3.8-10.6)
--- NOTE | 2023-05-09 14:40 | CT ---
EXAMINATION TYPE: CT abdomen pelvis wo con DATE OF EXAM: 05/09/2023 COMPARISON: None INDICATION: Right flank pain. DLP: 868.8 mGycm, Automated exposure control for dose reduction was used. CONTRAST: 0 mL of Isovue 300. Study performed without Oral Contrast TECHNIQUE: Axial images were obtained from above the diaphragm to the pubic rami in the axial plane a t 5 mm thick sections. Reconstructed images are reviewed on the computer in the coronal plane. FINDINGS: Limited CT sections are obtained the lung bases. The lung bases are clear. CT ABDOMEN: Liver: Normal Spleen: Normal Pancreas: Normal Adrenal glands: The adrenal glands are normal. Gallbladder: Normal Kidneys: No masses are evident. No hydronephrosis is present. No cysts are present. There are punc penaloza nonobstructing renal stones bilaterally largest on the left is medial midportion measuring 0.7 c m. Largest on the right is at the inferior pole measuring 0.4 cm. Aorta: Normal Inferior vena cava: Normal. CT PELVIS: Loops of bowel within the abdomen and pelvis are normal. This study is lateral contrast material in bowel evaluation. Appendix: Normal as visualized. Urinary bladder: Normal. Genitourinary structures: Uterus is normal. Adnexa are normal. Osseous structures: No suspicious lytic or sclerotic lesions evident. IMPRESSION: 1. Bilateral nonobstructing renal stones.
[2023-05-09 14:41] LABS: ALT 27 U/L (4-34); AST 27 U/L (14-36); African American GFR (CKD) >90 (>60 ml/min/1.73 sqM); Albumin 3.7 g/dL (3.5-5.0); Alkaline Phosphatase 111 U/L (38-126); Anion Gap 7 mmol/L; Blood Urea Nitrogen 19 mg/dL (7-17); Calcium 8.9 mg/dL (8.4-10.2); Carbon Dioxide 23 mmol/L (22-30); Chloride 105 mmol/L (98-107); Glucose 84 mg/dL (74-99); Magnesium 2.5 mg/dL (1.6-2.3); Non-African American GFR(CKD) >90 (>60 ml/min/1.73 sqM); Potassium 3.7 mmol/L (3.5-5.1); Sodium 135 mmol/L (137-145); Total Bilirubin 0.5 mg/dL (0.2-1.3); Total Protein 6.8 g/dL (6.3-8.2)
[2023-05-09] MEDS ORDERED: MORPHINE SULFATE 4 MG/ML SYRINGE IV STA (16:23)
[2023-05-09 16:47] LABS: Appearance,Urine Cloudy (Clear); Bilirubin,Urine Negative (Negative); Blood,Urine Negative (Negative); Calcium Oxalate Crystals,Urine Rare /hpf; Color,Urine Yellow; Glucose,Urine (UA) Negative (Negative); Ketones,Urine Negative (Negative); Leukocyte Esterase,Urine Small (Negative); Mucus,Urine Few /hpf; Nitrite,Urine Negative (Negative); PH, Urine 7.5 (5.0-8.0); Protein,Urine 1+ (Negative); RBC,Urine 38 /hpf (0-5); Specific Gravity,Urine 1.029 (1.001-1.035); Squamous Epithelial Cell,Urine 1 /hpf (0-4); Urobilinogen,Urine <2.0 mg/dL (<2.0); WBC,Urine 2 /hpf (0-5)
[2023-05-09] MEDS ORDERED: PEG 3350 (236 GM/BTL) + LYTES 4,000 ML BOTTLE PO ONE (16:53)
[2023-05-09] MEDS ORDERED: ACET/COD 300 MG/30 MG STARTER PACK 6 TAB BTL PO STA (17:29)
== END 2023-05-09 18:55 | disposition home or self-care (01) ==
LOC: EC 12:19
DX: R45.851 Suicidal ideations (principal); R10.9 Unspecified abdominal pain; F32.A Depression, unspecified; F41.9 Anxiety disorder, unspecified; Z79.899 Other long term (current) drug therapy; Z91.041 Radiographic dye allergy status; Z91.013 Allergy to seafood; Z88.8 Allergy status to other drugs, medicaments and biological substances; Z85.3 Personal history of malignant neoplasm of breast
CPT/HCPCS: 82075; 36415; 80053; 83735; 85025; 81001; 74176; 99285; 96374; 96375 ×2; 96361; J2270; J2405; J1885

== ENCOUNTER → 2023-09-29 | Outpatient (CLI) | payer MEDICARE, OTHER ==
--- NOTE | 2023-09-30 14:03 | MR ---
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 The patient was then given intravenous contrast and multi planar, T1 fat-saturation images wer e obtained. IV Contrast: 9.5 cc Gadavist FINDINGS: The hale-white junctions, ventricular system, basal cisterns appear unremarkable. Diffusion-weighted imaging shows no evidence of restricted diffusion to suggest acute/subacute infarct. Intracranial ar terial flow voids are maintained. Midline structures show no abnormality. Scattered foci of high T2 s ignal intensity are seen within the periventricular white matter. There may be a few more white matte r changes compared to prior in 2017 given differences in slice selection and technique. The susceptib ility weighted images do not reveal any evidence for micro-hemorrhage. After administration of gadoli nium, no abnormal enhancement is seen. The bone marrow signal is within normal limits. Paranasal sinuses and mastoid air cells: No significant paranasal sinus disease. Visualized orbits: Orbital contents are intact. IMPRESSION: 1. No evidence of intracranial mass, acute/subacute infarct, or abnormal enhancement. 2. Nonspecific white matter changes, findings may be minimally progressed from prior in 2017. Sternot bud typical distribution of multiple sclerosis.
== END | disposition home or self-care (01) ==
LOC: RADMRIMAIN 18:03
PROVIDERS: ATTEND Internal Medicine Hematology & Oncology
DX: G93.89 Other specified disorders of brain (principal); G35 Multiple sclerosis; C50.412 Malignant neoplasm of upper-outer quadrant of left female breast; G43.909 Migraine, unspecified, not intractable, without status migrainosus; K21.9 Gastro-esophageal reflux disease without esophagitis; F41.8 Other specified anxiety disorders; R41.3 Other amnesia
CPT/HCPCS: 70553; A9585

== ENCOUNTER 2024-04-25 06:18 | Emergency (ER) | payer MEDICARE, OTHER ==
--- NOTE | 2024-04-25 07:38 | XR ---
EXAMINATION TYPE: XR shoulder complete 3 views RT DATE OF EXAM: 04/25/2024 Comparison: 11/14/2016 Clinical History: 49-year-old female with pain Findings: Mild degenerative joint space narrowing and capsular hypertrophy at the acromioclavicular joint. Suba cromial space is preserved. No acute fracture, subluxation, or dislocation. Visualized right hemithor ax is clear. Impression: Mild right AC joint OA. No acute osseous abnormality seen. If symptoms persist, consider MRI.
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
[2024-04-25] MEDS: KETOROLAC 15 MG/ML 1 ML VIAL IVP STA (08:12)
[2024-04-25] MEDS: methylPREDNISolone SOD SUCCI 125 MG/2 ML VIAL IV STA (08:18)
[2024-04-25] MEDS: HYDROmorphone 0.5 MG/0.5 ML SYRINGE IVP STA (08:20)
[2024-04-25 08:22] LABS: Basophils % (A) 1 %; Eosinophils # (A) 0.2 k/uL (0-0.7); Eosinophils % (A) 2 %; HCT 38.8 % (34.0-46.0); HGB 12.7 gm/dL (11.4-16.0); Lymphocytes # (A) 2.6 k/uL (1.0-4.8); Lymphocytes % (A) 35 %; MCH 28.7 pg (25.0-35.0); MCHC 32.6 g/dL (31.0-37.0); MCV 87.9 fL (80.0-100.0); Mean Platelet Volume 7.5; Monocytes # (A) 0.4 k/uL (0-1.0); Monocytes % (A) 6 %; Neutrophils # (A) 4.1 k/uL (1.3-7.7); Neutrophils % (A) 55 %; Platelet Count 330 k/uL (150-450); RBC 4.42 m/uL (3.80-5.40); RDW 14.2 % (11.5-15.5); WBC 7.4 k/uL (3.8-10.6)
[2024-04-25 08:38] LABS: ALT 28 U/L (4-34); AST 31 U/L (14-36); African American GFR (CKD) >90 (>60 ml/min/1.73 sqM); Albumin 3.8 g/dL (3.5-5.0); Alkaline Phosphatase 145 U/L (38-126); Anion Gap 6 mmol/L; Blood Urea Nitrogen 10 mg/dL (7-17); Calcium 9.1 mg/dL (8.4-10.2); Carbon Dioxide 25 mmol/L (22-30); Chloride 104 mmol/L (98-107); Glucose 96 mg/dL (74-99); Magnesium 2.2 mg/dL (1.6-2.3); Non-African American GFR(CKD) >90 (>60 ml/min/1.73 sqM); Potassium 3.9 mmol/L (3.5-5.1); Sodium 135 mmol/L (137-145); Total Bilirubin 0.5 mg/dL (0.2-1.3); Total Protein 6.8 g/dL (6.3-8.2)
[2024-04-25] MEDS: ACET/COD 300 MG/30 MG STARTER PACK 6 TAB BTL PO STA (10:03)
[2024-04-25 10:08] VITALS: BP 106/79; PULSE 85; RESP 18; TEMP 97.7
== END 2024-04-25 10:13 | disposition home or self-care (01) ==
LOC: EC 06:18
DX: M06.9 Rheumatoid arthritis, unspecified (principal); M25.511 Pain in right shoulder; Z91.041 Radiographic dye allergy status
CPT/HCPCS: 36415; 80053; 83735; 85025; 73030; 99284; 96374; 96375 ×2; J1885; J1170; J2919

== ENCOUNTER 2024-06-14 03:40 | Emergency (ER) | payer MEDICARE, OTHER ==
[2024-06-14 03:45] VITALS: RESP 18
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
[2024-06-14 04:20] LABS: Basophils # (A) 0.1 k/uL (0-0.2); Basophils % (A) 1 %; Eosinophils # (A) 0.1 k/uL (0-0.7); Eosinophils % (A) 1 %; HCT 42.6 % (34.0-46.0); HGB 13.5 gm/dL (11.4-16.0); Lymphocytes # (A) 3.4 k/uL (1.0-4.8); Lymphocytes % (A) 42 %; MCH 27.6 pg (25.0-35.0); MCHC 31.7 g/dL (31.0-37.0); Mean Platelet Volume 7.2; Monocytes # (A) 0.5 k/uL (0-1.0); Monocytes % (A) 6 %; Neutrophils # (A) 3.9 k/uL (1.3-7.7); Neutrophils % (A) 48 %; Platelet Count 393 k/uL (150-450); RBC 4.89 m/uL (3.80-5.40); RDW 13.8 % (11.5-15.5); WBC 8.2 k/uL (3.8-10.6)
[2024-06-14 04:32] LABS: INR 0.9 (<1.2); Partial Thromboplastin Time 23.7 sec (22.0-30.0)
--- NOTE | 2024-06-14 04:34 | XR ---
EXAM: XR Chest, 1 View CLINICAL HISTORY: ITS.REASON XR Reason: chest pain TECHNIQUE: Frontal view of the chest. COMPARISON: 2 views of the chest June 11, 2019 IMPRESSION: 1. Mild right hemidiaphragm elevation without acute cardiopulmonary abnormality.
[2024-06-14 05:00] LABS: ALT 21 U/L (4-34); AST 25 U/L (14-36); African American GFR (CKD) >90 (>60 ml/min/1.73 sqM); Albumin 4.6 g/dL (3.5-5.0); Alkaline Phosphatase 139 U/L (38-126); Anion Gap 10 mmol/L; Blood Urea Nitrogen 9 mg/dL (7-17); Calcium 10.1 mg/dL (8.4-10.2); Carbon Dioxide 27 mmol/L (22-30); Chloride 102 mmol/L (98-107); Glucose 84 mg/dL (74-99); Lipase 147 U/L (23-300); Magnesium 2.2 mg/dL (1.6-2.3); Non-African American GFR(CKD) >90 (>60 ml/min/1.73 sqM); Potassium 3.7 mmol/L (3.5-5.1); Sodium 139 mmol/L (137-145); Total Bilirubin 0.9 mg/dL (0.2-1.3); Total Protein 8.2 g/dL (6.3-8.2)
[2024-06-14 05:07] LABS: NT-Pro-B-Type Natriuretic Pept 70 pg/mL
[2024-06-14] MEDS: SODIUM CHLORIDE 0.9% 1,000 ML IV STA (05:09)
[2024-06-14] MEDS: ONDANSETRON 4 MG/2 ML VIAL IVP STA (05:35)
[2024-06-14] MEDS: KETOROLAC 15 MG/ML 1 ML VIAL IVP STA (05:37)
[2024-06-14] MEDS: LORazepam 2 MG/ML INJ IV STA (05:38)
[2024-06-14] MEDS: SODIUM CHLORIDE 0.9% 500 ML 500 ML IV STA (05:40)
[2024-06-14] MEDS: methylPREDNISolone SOD SUCCI 125 MG/2 ML VIAL IV STA (06:52)
[2024-06-14] MEDS: FAMOTIDINE 20 MG/2 ML VIAL IV STA (06:54)
[2024-06-14] MEDS: diphenhydrAMINE 50 MG/ML 1 ML VIAL IVP STA (06:55)
--- NOTE | 2024-06-14 08:19 | CT ---
EXAMINATION TYPE: CT angio chest CT DLP: 347.7 mGycm, Automated exposure control for dose reduction was used. DATE OF EXAM: 06/14/2024 7:21 AM COMPARISON: 12/23/2021, 06/14/2024 CLINICAL INDICATION: Female, 49 years old with history of cp; chest pain, radiating around back TECHNIQUE/CONTRAST: CTA scan of the thorax is performed with IV Contrast, patient injected with 100 mL of Isovue 300, MIP images are created and reviewed these are created on a separate workstation.. FINDINGS: Pulmonary Artery: There is no evidence for a filling defect within the pulmonary vasculature to sugge st acute pulmonary embolism. The pulmonary artery is of normal size. Lungs/Pleura: No evidence of focal consolidation, pleural effusion or pneumothorax. Airway: Large airways are patent. Heart: Heart is within normal limits for size. Vasculature: No evidence of aortic aneurysm. Mediastinum: No gross evidence of adenopathy. Musculoskeletal: No acute osseous abnormalities Soft Tissues/lymph nodes: Bilateral breast implants appear intact. Lower neck: No significant findings. Upper Abdomen: No significant findings. IMPRESSION: 1. No evidence of pulmonary embolism. Follow up recommendations for incidental pulmonary nodules, if there are any, are per [employer] or [place] [employer]. https://radiopaedia.org/articles/htndvldnfk-ieusrmg-scecymkfm-ewyeyv-fjqnlskvmdxouzo-7?lang=us [facility], , 06/14/2024 8:16 AM
[2024-06-14 08:54] VITALS: BP 129/84; PULSE 96; TEMP 98.6
== END 2024-06-14 08:54 | disposition home or self-care (01) ==
LOC: EC 03:40
CPT/HCPCS: 36415; 71045; 71275; 80053; 83690; 83735; 83880; 84484; 85025; 85379; 85610; 85730; 93005; 96361; 96374; 96375; 99285

== ENCOUNTER → 2024-07-08 | Outpatient (CLI) | payer MEDICARE, OTHER ==
[2024-07-08 15:11] LABS: Basophils # (A) 0.05 X 10*3/uL (0.00-0.10); Basophils % (A) 0.6 %; Eosinophils # (A) 0.18 X 10*3/uL (0.04-0.35); Eosinophils % (A) 2.3 %; HCT 42.3 % (37.2-46.3); HGB 13.1 g/dL (12.0-15.0); Lymphocytes % (A) 34.1 %; MCH 27.6 pg (27.0-32.0); MCV 89.2 FL (80.0-97.0); Mean Platelet Volume 9.3 FL (9.5-12.2); Monocytes # (A) 0.56 X 10*3/uL (0.20-1.00); Monocytes % (A) 7.1 %; NRBC Per 100 WBC 0 X 10*3/uL (0.00-0.01); Neutrophils % (A) 55.5 %; Platelet Count 360 X 10*3/uL (140-440); RBC 4.74 X 10*6/uL (4.10-5.20); RDW 14.2 % (11.5-14.5); WBC 7.92 X 10*3/uL (4.50-10.00)
[2024-07-08 15:38] LABS: Creatine Kinase 63 U/L (26-186)
[2024-07-08 15:43] LABS: Hepatitis B Core IgM Nonreactive (Nonreactive); Hepatitis B Surface Antigen Nonreactive (Nonreactive); Hepatitis C IgG Antibody Nonreactive (Nonreactive)
[2024-07-08 15:54] LABS: ALT 15 U/L (8-44); AST 24 U/L (13-35); Albumin 4.4 g/dL (3.8-4.9); Albumin/Globulin Ratio 1.33 Ratio (1.60-3.17); Alkaline Phosphatase 154 U/L (41-126); Blood Urea Nitrogen 6.6 mg/dL (9.0-27.0); Calcium 9.5 mg/dL (8.7-10.3); Carbon Dioxide 24.1 mmol/L (21.6-31.8); Chloride 102 mmol/L (96-109); Globulin 3.3 g/dL (1.6-3.3); Glucose 83 mg/dL (70-110); Potassium 4.6 mmol/L (3.5-5.5); Rheumatoid Factor, Qnt >650 IU/mL (0-15); Sodium 139 mmol/L (135-145); Total Bilirubin 0.4 mg/dL (0.3-1.2); Total Protein 7.7 g/dL (6.2-8.2)
[2024-07-08 17:35] LABS: Erythrocyte Sedimentation Rate 66 mm/Hr (0-20)
[2024-07-08 21:28] LABS: Cyclic Citrull Pep IgG Unit 18.4 U/mL (<=3.9); Cyclic Citrullinated Pep IgG Positive (Negative)
--- NOTE | 2024-07-08 22:10 | XR ---
EXAMINATION TYPE: XR hand complete bilateral DATE OF EXAM: 07/08/2024 10:00 AM COMPARISON: None. CLINICAL INDICATION: Female, 49 years old with history of M06.9 RHEUMATIOD ARTHRITIS ,Z51.81 DRUG MON ITORING, TECHNIQUE: XR hand complete bilateral view(s) obtained. FINDINGS: Right hand: Mild diffuse narrowing of proximal and distal interphalangeal joint spaces is present. Mo derate degenerative changes are in the proximal interphalangeal joint space fifth digit. Soft tissue swelling over the base of the index finger and fifth digit may be present. There may be prior fractur e of the distal index finger metacarpal and more proximal third metacarpal. Left hand: Mild narrowing of the proximal distal interphalangeal joint spaces is present. Metacarpals are intact. Soft tissues appear within normal limits. Mild diffuse soft tissue swelling over the ind ex finger left hand is present. Note is made of some periarticular erosions in the proximal interphal angeal joint space index finger left hand IMPRESSION: 1. No acute osseous abnormality bilateral hands. 2. Moderately advanced degenerative joint change in the proximal interphalangeal joint space fifth di git right hand. 3. Soft tissue swelling index fifth digit right hand and proximal index finger left hand [facility], Workstation: [facility], 07/08/2024 10:08 PM
--- NOTE | 2024-07-08 22:12 | XR ---
EXAMINATION TYPE: XR wrist complete BILATERAL DATE OF EXAM: 07/08/2024 9:59 AM COMPARISON: None. CLINICAL INDICATION: Female, 49 years old with history of M06.9 RHEUMATIOD ARTHRITIS ,Z51.81 DRUG MON ITORING, TECHNIQUE: XR wrist complete BILATERAL view(s) obtained. FINDINGS: Left wrist: Joint spaces are preserved. Alignment is preserved. Soft tissues appear normal. Right wrist: There may be some mild osteopenia through the joint spaces of the right wrist including distal radius and ulna proximal distal carpal row and proximal metacarpals. Soft tissues appear ky l. Suspicious erosion not identified. IMPRESSION: 1. There may be some periarticular osteoporosis right wrist. [facility], , 07/08/2024 10:10 PM
--- NOTE | 2024-07-08 22:14 | XR ---
EXAMINATION TYPE: XR foot complete bilateral DATE OF EXAM: 07/08/2024 10:00 AM COMPARISON: None. CLINICAL INDICATION: Female, 49 years old with history of M06.9 RHEUMATIOD ARTHRITIS ,Z51.81 DRUG MON ITORING, TECHNIQUE: XR foot complete bilateral view(s) obtained. FINDINGS: Bilateral feet exam in 3 projections each. Bilateral feet: Proximal and distal interphalangeal joint spaces are unremarkable. Alignment is prese rved. Mild diffuse soft tissue swelling over the digits may be present. Left foot: Punctate metallic type density may be in the plantar great toe. IMPRESSION: 1. Mild diffuse soft tissue swelling of the digits. 2. Radiopaque foreign body plantar great toe left foot [facility], , 07/08/2024 10:12 PM
[2024-07-11 11:08] LABS: Protein, Total 7.4 g/dL (6.2-8.2)
== END | disposition home or self-care (01) ==
LOC: RADXRMAIN 09:17
PROVIDERS: ATTEND Internal Medicine Rheumatology
DX: Z51.81 Encounter for therapeutic drug level monitoring (principal); M06.9 Rheumatoid arthritis, unspecified; M19.041 Primary osteoarthritis, right hand; S90.452A Superficial foreign body, left great toe, initial encounter
CPT/HCPCS: 80053; 82550; 83520; 84165; 85025; 85652; 86038; 86140; 86200; 86235; 86431; 86480; 86704; 86705; 86706; 86803; 87340

== ENCOUNTER 2024-12-18 16:37 | Emergency (ER) | payer MEDICARE, OTHER ==
--- NOTE | 2024-12-18 17:48 | CT ---
EXAMINATION TYPE: CT brain cspine wo con DATE OF EXAM: 12/18/2024 5:37 PM COMPARISON: PET CT 12/28/2021. CLINICAL INDICATION: Female, 49 years old with history of fall; multiple recent falls TECHNIQUE: Brain: Multiple axial CT images of the brain were obtained without IV contrast. Cspine: Axial CT images from the skull base to the inferior aspect of T2 we obtained without intraven ous contrast. Coronal and sagittal reformatted images were also reviewed. . CT DLP: 1603.8 mGycm, Automated exposure control for dose reduction was used. FINDINGS: Brain: Extra-axial spaces: No abnormal extra-axial fluid collections. Ventricular system: Dilatation in proportion to cerebral atrophy. Cerebral parenchyma: No acute intraparenchymal hemorrhage or mass effect. The hale-white junction is well differentiated. Scattered hypoattenuating areas are seen within the white matter. Cerebellum: Unremarkable. Mass effect: No evidence of midline shift. Intracranial vasculature: unremarkable Soft tissues: Normal. Calvarium/osseous structures: No depressed skull fracture. Paranasal sinuses and mastoid air cells: Clear. Visualized orbits: Orbital contents are intact. Cervical spine: Fracture: None. Osseous structures: Unremarkable Vertebral alignment: Straightening of the normal cervical spine lordotic curvature. No evidence of si gnificant spondylitic listhesis. Spinal canal/Neural Foramina: No evidence of high-grade spinal canal stenosis. Multilevel mild facet arthropathy. Neck soft tissues: Prevertebral soft tissues are within normal limits. Other: The airway is patent. The lung apices demonstrate indeterminate spiculated region of nodularit y in the right lung apex measuring 12 mm. IMPRESSION: 1. No acute intracranial process. 2. No acute fracture or traumatic subluxation of the cervical spine. 3. Indeterminate 12 mm region is recommended nodularity in the right lung apex. Recommend outpatient CT chest with IV contrast for further evaluation. [facility], , 12/18/2024 5:46 PM
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
[2024-12-18] MEDS: KETOROLAC 15 MG/ML 1 ML VIAL IM STA (18:50)
[2024-12-18 19:15] VITALS: BP 122/87; PULSE 90; RESP 16; TEMP 98
== END 2024-12-18 19:14 | disposition home or self-care (01) ==
LOC: EC 16:37
DX: S09.90XA Unspecified injury of head, initial encounter (principal); Z91.013 Allergy to seafood; Z91.041 Radiographic dye allergy status; W19.XXXA Unspecified fall, initial encounter
CPT/HCPCS: 82075; 72125; 70450; 99285; 96372; J1885

== ENCOUNTER 2025-01-15 07:12 | Emergency (ER) | payer MEDICARE ==
[2025-01-15 07:21] VITALS: TEMP 97.9
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
[2025-01-15 08:00] LABS: Basophils # (A) 0.04 10*3/uL (0.00-0.10); Basophils % (A) 0.6 %; Eosinophils # (A) 0.16 10*3/uL (0.04-0.35); Eosinophils % (A) 2.5 %; HCT 36.8 % (37.2-46.3); Lymphocytes # (A) 1.41 10*3/uL (0.90-5.00); Lymphocytes % (A) 22.4 %; MCH 28.2 pg (27.0-32.0); MCHC 32.6 g/dL (32.0-37.0); MCV 86.4 fL (80.0-97.0); Mean Platelet Volume 8.9 fL (9.5-12.2); Monocytes # (A) 0.59 10*3/uL (0.20-1.00); Monocytes % (A) 9.4 %; Neutrophils # (A) 4.06 10*3/uL (1.80-7.70); Neutrophils % (A) 64.6 %; Platelet Count 280 10*3/uL (140-440); RBC 4.26 10*6/uL (4.10-5.20); RDW 14.8 % (11.5-14.5); WBC 6.29 10*3/uL (4.50-10.00)
[2025-01-15] MEDS: MORPHINE SULFATE 4 MG/ML SYRINGE IVP PRN (08:04)
--- NOTE | 2025-01-15 08:17 | CT ---
EXAMINATION TYPE: CT brain lyndonine wo con DATE OF EXAM: 01/15/2025 COMPARISON: 12/18/2024 CLINICAL INDICATION: Female, 49 years old with history of falls; PHH, recent falls TECHNIQUE: CT scan of the head and cervical spine are performed without contrast. CT DLP: 1502.[address] CTDI: mGy Automated exposure control for dose reduction was used. Findings: Head CT: Ventricles, basal cisterns and sulci over convexities within normal limits and there is no mass, mass effect or shift of midline structures. No abnormal density is seen throughout the brain parenchyma and there is no acute intra or extra-axia l hemorrhage. Posterior fossa including the brainstem, fourth ventricle and cerebellar pontine angles are grossly n ormal. The intraorbital contents appear normal and symmetric. Visualized paranasal sinuses are well aerated. CT cervical spine: Craniovertebral junction relationships and prevertebral soft tissues are normal. The cervical vertebral segments are normal in height and alignment and there is no fracture subluxati on. The disc spaces are well-maintained in height and there is no significant degenerative disc disease. The bony cervical canal is widely patent and there is no bony encroachment of the neural foramina. The paraspinal soft tissues unremarkable. IMPRESSION: 1. Head CT: No acute bleed or mass effect. 2. CT cervical spine: No acute trauma. [facility], , 01/15/2025 8:15 AM
--- NOTE | 2025-01-15 08:23 | CT ---
EXAMINATION TYPE: CT chest wo con DATE OF EXAM: 01/15/2025 COMPARISON: CT chest abdomen and pelvis dated 12/23/2021 CLINICAL INDICATION: Female, 49 years old with history of falls; PHH, hx of recent falls TECHNIQUE: CT scan of the thorax is performed without IV contrast. CT DLP: [address] CTDI: mGy Automated exposure control for dose reduction was used. FINDINGS: There is no suspicious lung mass or nodule. There is mild pleural-parenchymal scarring in the right lung base posteriorly. There is no airspace consolidation. No pleural effusion or pneumothorax. The heart and pulmonary vasculature are normal. There is no mediastinal, hilar or axillary adenopathy. There are bilateral breast implants. There is a stable sclerotic density in the sternum. IMPRESSION: No acute cardiopulmonary disease. No interval change. [facility], , 01/15/2025 8:21 AM
[2025-01-15 08:26] LABS: ALT 90 U/L (4-34); AST 83 U/L (14-36); African American GFR (CKD) >90 (>60 ml/min/1.73 sqM); Albumin 3.8 g/dL (3.5-5.0); Alkaline Phosphatase 108 U/L (38-126); Anion Gap 9 mmol/L; Blood Urea Nitrogen 16 mg/dL (7-17); Carbon Dioxide 24 mmol/L (22-30); Chloride 104 mmol/L (98-107); Glucose 101 mg/dL (74-99); Magnesium 2.1 mg/dL (1.6-2.3); Non-African American GFR(CKD) >90 (>60 ml/min/1.73 sqM); Potassium 3.8 mmol/L (3.5-5.1); Sodium 137 mmol/L (137-145); Total Protein 6.9 g/dL (6.3-8.2)
[2025-01-15 08:38] VITALS: BP 105/69; PULSE 89; RESP 17
[2025-01-15 08:53] LABS: Appearance,Urine Clear (Clear); Bacteria,Urine Rare /hpf; Bilirubin,Urine Negative (Negative); Blood,Urine Trace (Negative); Color,Urine Light Yellow; Glucose,Urine (UA) Negative (Negative); Ketones,Urine Negative (Negative); Leukocyte Esterase,Urine Moderate (Negative); Mucus,Urine Occasional /hpf; Nitrite,Urine Negative (Negative); Protein,Urine Negative (Negative); RBC,Urine 2 /hpf (0-5); Specific Gravity,Urine 1.013 (1.001-1.035); Squamous Epithelial Cell,Urine 6 /hpf (0-4); Urobilinogen,Urine <2.0 mg/dL (<2.0); WBC,Urine 15 /hpf (0-5)
== END 2025-01-15 09:34 | disposition home or self-care (01) ==
LOC: EC 07:12
DX: S20.219A Contusion of unspecified front wall of thorax, initial encounter (principal); S09.90XA Unspecified injury of head, initial encounter; Z91.013 Allergy to seafood; Z91.041 Radiographic dye allergy status; W19.XXXA Unspecified fall, initial encounter
CPT/HCPCS: 36415; 93005; 80053; 83605; 83735; 84484; 85025; 81001; 72125; 70450; 71250; 99284; 96374; J2270